=== PATIENT | female | born 1975 | race American Indian/Alaskan Native ===

== ENCOUNTER 2017-03-04 02:58 | Emergency (ER) ==
[2017-03-04 03:12] VITALS: TEMP 98.3; BMI 25.0
--- NOTE | 2017-03-04 04:03 | CT ---
EXAM: CT scan brain without contrast HISTORY: Altercation COMPARISON: None. FINDINGS: Contiguous axial images obtained from the skull base to the convexities without contrast utilizing 5-mm collimation. Sagittal and coronal reconstructions were imaged and reviewed. The nimisha tricles and CSF spaces are within normal limits. There are no acute intracranial findings. The vis ualized paranasal sinuses and mastoid air cells are clear. There is minimal right frontal scalp swel ling.. The calvarium is intact. IMPRESSION: No acute intracranial findings.
--- NOTE | 2017-03-04 04:05 | CT ---
EXAM: CT scan thorax without contrast HISTORY: Altercation COMPARISON: None. FINDINGS: Contiguous axial images were obtained through the thorax without contrast utilizing 5-mm collimation. Sagittal and coronal reconstructions were imaged and reviewed... The thoracic inlet i s unremarkable. The heart is normal in size without pericardial effusion. The lungs are well expan ded and clear bilaterally.. Bone windows reveals no evidence of lytic or blastic lesions. IMPRESSION: Normal CT scan thorax
--- NOTE | 2017-03-04 04:10 | CT ---
EXAM: CT scan abdomen pelvis without contrast HISTORY: Altercation COMPARISON: None. FINDINGS: Contiguous axial images obtained through the abdomen pelvis without contrast utilizing 3- mm collimation. Sagittal and coronal reconstructions were imaged and reviewed.. The gallbladder is fluid filled without cholelithiasis. The liver, pancreas, spleen and adrenal glands have normal un enhanced CT appearance. The kidneys morphologically normal. The abdominal aorta is normal in cours e and caliber. There is normal appendix. There is no evidence of free fluid or inflammatory change s.. Bone windows reveals no evidence of lytic or blastic lesions. IMPRESSION: No acute findings.
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
[2017-03-04] MEDS ORDERED: MOTRIN PO STA (04:30)
[2017-03-04 05:08] VITALS: BP 116/60
== END 2017-03-04 05:05 | disposition home or self-care (01) ==
LOC: ED 02:58
DX: S00.03XA Contusion of scalp, initial encounter (principal); S19.9XXA Unspecified injury of neck, initial encounter; Y04.2XXA Assault by strike against or bumped into by another person, initial encounter
CPT/HCPCS: 99283